=== PATIENT | male | born 1980 | race Caucasian/White ===

== ENCOUNTER 2021-03-08 09:42 | Emergency (ER) | payer BC, SELFPAY ==
[2021-03-08 09:45] VITALS: BP 141/88; PULSE 83; RESP 14; TEMP 37.4; O2SAT 98; BMI 27.9
--- NOTE | 2021-03-08 09:53 | ED_ITS ---
HPI - General Adult General Chief complaint: Extremity Injury, Upper Stated complaint: Rt shoulder fracture Time Seen by Provider: 03/08/21 09:49 Source: patient Mode of arrival: Ambulatory Limitations: no limitations History of Present Illness HPI narrative: Patient is a 40-year-old male who approximately 12 days ago sustained a fall while in [place]. He states that he fell down 2-3 stairs. He was seen at a facility there and had x-rays and was diagnosed with a humerus fracture. He states that since that time he has had continued pain. He states he was told by the emergency physician there that he was going to have surgery that evening however he states that the orthopedic doctor was not want to be able to see him until 7-8 days later. His mother lives in the local area. Apparently he was supposed to moved to the local area later this month and so just decided to travel here. He shows up to the emergency department seeking further evaluation. Related Data Previous Rx's Medication Instructions Recorded hydrocodone-acetaminophen 1 tab PO Q4-6H PRN #14 tab 03/08/21 Allergies Allergy/AdvReac Type Severity Reaction Status Date / Time No Known Drug Allergies Allergy Verified 03/08/21 09:55 Review of Systems Constitutional Constitutional: Reports system reviewed and no additional complaints, except as documented Musculoskeletal Musculoskeletal: Reports tingling Comments: Right shoulder pain and swelling Integumentary/Breasts Comments: Bruising around the right chest and right shoulder Neurologic Neurologic: Reports tingling Psychiatric Psychiatric: Reports system reviewed and no additional complaints, except as documented Hematologic/Lymphatic On Anticoagulants: No Allergic/Immunologic Allergic/Immunologic: Reports system reviewed and no additional complaints, except as documented Patient History Medical History Healthy adult Social History lives independently: Yes Smoking Status: Unknown if ever smoked Exam Initial Vital Signs Initial Vital Signs: Vital Signs Temperature 99.4 F 03/08/21 09:45 Pulse Rate 83 03/08/21 09:45 Respiratory Rate 14 03/08/21 09:45 Blood Pressure 141/88 H 03/08/21 09:45 Pulse Oximetry 98 03/08/21 09:45 Const General: cooperative Limitations: mental status not altered HENAR Head: normal to inspection and normocephalic Resp Effort & Inspection: normal respiratory effort Cardio Rate: regular rate Pulses: radial pulses present on the right Skin Other: Bruising to the right pectoralis region and also the right humerus and right forearm Neuro Sensory Exam: no sensory deficits noted Extrem Other: Discomfort palpation of the right humerus and right forearm. Psych Appearance: grossly normal and well kempt Procedures Orthopedic Splinting/Casting Injury #1: Side: right Upper Extremity Injury Location: shoulder Upper Extremity Immobilizer: sling/shoulder immobilizer Post splinting neuro exam: no change Post splinting vascular exam: no change Placed by: Nursing Course Orders Ordered: ED Orders 03/08/21 09:52 XR forearm RT 2V Stat XR humerus RT 2V Stat Vital Signs Vital signs: Vital Signs - 8 hr 03/08/21 09:45 Temperature 99.4 F Pulse Rate 83 Respiratory Rate 14 Blood Pressure 141/88 H Pulse Oximetry 98 Medical Decision Making Lab Data Lab results reviewed: Yes I reviewed the patient's lab results. Imaging Data Extremity x-ray #1: Radiologist's Impression: [address] [id number] ReportSigned Patient: Shekhar Velázquez PMR#: [id number]: 1980Acct:[id number]/Sex: 40 / MDate of Service: 03/08/21Loc: EDAccession Number: [id number] Procedure: XR forearm RT 2V Ordering Provider: Roman Garibay D.O. PROCEDURE: XR FOREARM RT 2V INDICATIONS: fall with pain TECHNIQUE: 2 views of the forearm were acquired. COMPARISON: None. FINDINGS: Bones: No fractures or dislocations. No suspicious bony lesions. Soft tissues: No suspicious soft tissue calcifications or masses. IMPRESSION: No evidence acute bony abnormality of the right forearm Dictated by: Hawk Najera M.D. on 03/08/2021 at 10:30 Approved by: Hawk Najera M.D. on 03/08/2021 at 10:31 Extremity x-ray #2: Radiologist's Impression: [address] [id number] ReportSigned Patient: Shekhar Velázquez PMR#: [id number]: 1980Acct:[id number]/Sex: 40 / MDate of Service: 03/08/21Loc: EDAccession Number: [id number] Procedure: XR humerus RT 2V Ordering Provider: Roman Garibay D.O. PROCEDURE: XR HUMERUS RT 2V INDICATIONS: known fracture after fall no X-rays here TECHNIQUE: 2 views of the humerus were acquired. COMPARISON: None. FINDINGS: Bones: Markedly comminuted, mildly displaced and angulated fracture of the humeral head and neck. No distal humeral fractures. No suspicious bony lesions. Soft tissues: No suspicious soft tissue calcifications. IMPRESSION: Markedly comminuted, mildly displaced and angulated fracture of the humeral head and neck. Dictated by: Hawk Najera M.D. on 03/08/2021 at 10:30 Approved by: Hawk Najera M.D. on 03/08/2021 at 10:30 [facility] Narrative Medical decision making narrative: Patient does have a proximal humerus fracture. He is neurovascularly intact. Does have quite a bit of swelling in his right upper arm and right lower arm. Low suspicion for compartment syndrome as as compartments are soft. I did discuss the case with Dr. Matos with orthopedics who took down the patient's information and will have the office contact him for follow-up later this week. He was placed in a splint for his comfort. He was also given the contact information for the orthopedic providers. Is given return precautions. He expressed understanding and agreement. Discharge Plan Departure Patient Disposition: Home Clinical Impression: Fracture of proximal end of humerus Instructions: How to Use a Sling, DI for Shoulder Fracture Activity Restrictions/Additional Instructions: I did discuss her case with Dr. Matos with orthopedics who stated that her office will contact you for follow-up in the office later this week. If you have not heard from them by tomorrow contact them at the number provided below. Use the sling like we discussed. Return to the emergency department for any new symptoms. If you are also planning to stay in the area I recommend you contact the health patient resource coordinator at [phone]. This individual can help you with establishing a primary provider. This is important because no further pain medication can be administered from the emergency department. This will either have to come from a primary doctor or the orthopedic provider Prescriptions: New hydrocodone-acetaminophen 5-325 mg tablet 1 tab PO Q4-6H PRN (Reason: pain) Qty: 14 RF: 0 Referrals: Hailey Matos MD [Physician] -
[2021-03-08 11:20] VITALS: BP 131/95; PULSE 80; RESP 19; O2SAT 99
== END 2021-03-08 11:21 | disposition home or self-care (01) ==
PROVIDERS: Emergency Provider Emergency Medicine
DX: S42.201A Unspecified fracture of upper end of right humerus, initial encounter for closed fracture (principal); W10.9XXA Fall (on) (from) unspecified stairs and steps, initial encounter
CPT/HCPCS: 73060; 73090; 99283

== ENCOUNTER 2021-03-11 08:41 | Day surgery (SDC) | payer BC, OTHER, SELFPAY ==
[2021-03-11] VITALS (14 sets, daily range): BP systolic 126–154; BP diastolic 70–93; PULSE 72–104; RESP 14–18; TEMP 35.9–37.5; O2SAT 95–100; BMI 27.2
[2021-03-11] MEDS: LACTATED RINGERS 1,000 ML 42 ML IV ×3 (09:22→15:22)
[2021-03-11 09:25] LABS: COVID19 -Nasal RAPID Negative (Negative)
[2021-03-11] MEDS: ACETAMINOPHEN 325 MG TABLET 975 MG PO ×2 (09:31→20:47)
[2021-03-11] MEDS: GABAPENTIN 300 MG CAPSULE PO (09:31)
--- NOTE | 2021-03-11 10:01 | PM.PREOP ---
Pre-operative Note COVID-19 COVID-19 status: Negative Result date/Date tested (Pos, Neg/Pending): 03/11/21 Interval Note History & Physical reviewed/Exam performed by Physician: Yes Changes to H&P: No
[2021-03-11] MEDS: CEFAZOLIN 1 GM VIAL 2 GM IV ×3 (11:00→22:50)
--- NOTE | 2021-03-11 11:25 | SUR.OPER ---
Supine on padded OR bed, head on pillow, left arm lying on oR padded table tucked at side, Right arm on padded Plexiglass arm board and in control of the surgeon, legs uncrossed, safety belt at thigh, tape over blanket over lower legs .
[2021-03-11] MEDS: BUPIVACAINE 0.25% W/ EPI (PF) 10 ML VIAL 20 ML INJ (11:37)
--- NOTE | 2021-03-11 15:55 | DI.RAD.S_ITS ---
PROCEDURE: XR SHOULDER RT MIN 2V INDICATIONS: RT SHOULDER ORIF TECHNIQUE: 3 operative views of the shoulder were acquired. COMPARISON: [facility], CR, XR HUMERUS RT 2V, 03/08/2021, 10:00. FINDINGS: Bones: 3 operative images demonstrate ORIF of a markedly comminuted right humeral neck/head fracture with a side plate and multiple screws. There is no radiographic evidence of complications. Soft tissues: No suspicious soft tissue calcifications. IMPRESSION: Operative imaging utilized during ORIF of a humeral neck/head fracture Dictated by: Hawk Najera M.D. on 03/11/2021 at 16:31 Approved by: Hawk Najera M.D. on 03/11/2021 at 16:33
[2021-03-11] MEDS: fentaNYL 100 MCG/2 ML INJ IV ×4 (16:08→16:58)
[2021-03-11] MEDS: HYDROMORPHONE 2 MG INJ IV (16:16)
[2021-03-11] MEDS: LACTATED RINGERS 1,000 ML 100 ML IV (18:57)
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
--- NOTE | 2021-03-11 20:34 | P.PN_ITS ---
Subjective Subjective Date Patient Seen: 03/11/21 Time Patient Seen: 19:35 Interval history: Postop day 0 right proximal humerus ORIF. Doing well pain controlled, sitting up in bed eating dinner. Expresses that he is very thankful for his care and the efforts we have gone to treat him here. No complaints today. Endorses a endorses some soreness in the arm but does not want any pain medication. Does ask for something for sleep. Exam Vital Signs (past 8 hours): - 03/11/21 15:42 03/11/21 15:45 03/11/21 15:47 Temperature Pulse Rate 100 H 100 H 101 H Respiratory Rate 16 16 16 Blood Pressure 126/70 132/78 136/75 Pulse Oximetry 98 95 95 03/11/21 16:38 03/11/21 16:45 03/11/21 17:00 Temperature 98.0 F 98.0 F Pulse Rate 96 H 98 H 97 H Respiratory Rate 14 16 16 Blood Pressure 136/85 136/83 129/75 Pulse Oximetry 99 98 98 03/11/21 17:15 03/11/21 17:47 03/11/21 18:15 Temperature 96.6 F L 96.9 F L 97.8 F Pulse Rate 94 H 94 H 97 H Respiratory Rate 16 16 16 Blood Pressure 144/89 H 154/83 H 133/90 Pulse Oximetry 97 97 96 03/11/21 19:21 03/11/21 19:44 03/11/21 20:17 Temperature 98.2 F 98.8 F Pulse Rate 99 H 104 H Respiratory Rate 16 18 Blood Pressure 141/84 H 141/93 H Pulse Oximetry 98 99 97 Oxygen Delivery Method Room Air Narrative Exam Narrative: General exam is alert oriented male no acute distress sitting up eating dinner. No complaints. HEENT exam normocephalic atraumatic Breathing is normal on room air saturation is 98% on room air Heart regular rhythm Musculoskeletal examination: Right upper extremity. Mild swelling as expected postoperatively compartments are soft. Aquacel dressing in place. No erythema or crepitus. Endorses sensation intact in axillary median radial ulnar nerve distributions. Demonstrates active finger flexion extension demonstrates active wrist flexion and extension. No drainage on the dressing Objective Labs Labs: Laboratory Results - last 24 hr 03/11/21 08:55 SARS-CoV-2 (PCR) Negative [facility] Medical History Healthy adult Social History household members: family lives independently: Yes Smoking Status: Never smoker alcohol intake: current Assessment & Plan Post-op Postoperative Procedures: Procedures Operation Date: 03/11/21 10:30 Actual Procedures Side Surgeon p ORIF Humerus Fracture Right Hailey Matos MD right proximal humerus postop day 1 status post ORIF. Use sling full-time 2 weeks. May start pendulum exercises after 3 days to help prevent stiffness. Discharge home tomorrow morning oxycodone for pain control scripts on chart. Small prescription of Valium the states this worked well for spasms and anxiety for him in the past and he has some recently. Discussed only use this very sparingly. Patient agrees. Prescription on chart. Prescription for Zofran for nausea also on chart. Patient has stool softener at home. Can also take ibuprofen and Tylenol if needed for pain. Follow-up my clinic 10-14 days for staple removal. Spoke with the patient directly regarding the OR medication event, with the infiltration of (10cc) hydrogen peroxide into the inferior aspect of the incision. Discussed with the patient that the incision was re-opened and drained and irrigated out. Patient expressed understanding. Quality VTE Deep Vein Thrombosis/Pulmonary Embolism Present on Admission: No
[2021-03-11] MEDS: DOCUSATE 100 MG CAPSULE PO (20:47)
[2021-03-11] MEDS: ZOLPIDEM 5 MG TABLET PO (20:47)
[2021-03-11] MEDS: OXYCODONE IR 10 MG TABLET PO (20:50)
[2021-03-11] MEDS: diazePAM 2 MG TABLET PO (22:50)
[2021-03-12] MEDS: OXYCODONE IR 10 MG TABLET PO ×3 (00:11→06:23)
[2021-03-12 03:18] VITALS: BP 134/79; PULSE 86; RESP 16; TEMP 37.4; O2SAT 96
[2021-03-12] MEDS: LACTATED RINGERS 1,000 ML 100 ML IV (03:53)
[2021-03-12] MEDS: CEFAZOLIN 1 GM VIAL 2 GM IV (06:24)
[2021-03-12] MEDS: diazePAM 2 MG TABLET PO (06:31)
[2021-03-12] MEDS: HYDROMORPHONE 0.5 MG INJ 0.2 MG IV (07:01)
--- NOTE | 2021-03-12 07:35 | PC.NURSE ---
Pt. reported pain level is @ 5/10 after Dilaudid 0.2 mg. admin. IVP. States it helped & I'm feeling a lot better than the pills I took earlier. Instructed pt. to let his MD know what medicine relieved his pain. Will monitor & continue POC.
[2021-03-12 08:19] VITALS: BP 145/85; PULSE 86; RESP 16; TEMP 36.9; O2SAT 95
--- NOTE | 2021-03-12 08:42 | PM.DS.1 ---
History of Present Illness History of Present Illness Date Patient Seen: 03/12/21 Time Patient Seen: 08:42 Chief complaint: ORIF RIGHT PROXIMAL HUMERUS FX *OPB* Narrative: Referred to previous HPI. Discharge Providers Provider Discharge Date: 03/12/21 Consults: 03/11/21 17:17 Consult to Respiratory Therapy Evaluate & Treat Comment: Physician Instructions: Evaluate and treat Discharge provider: Moy Ruiz PA-C Summary Hospital Course Discharge Diagnosis: Right proximal humerus fracture ORIF right proximal humerus fracture Hospital Course: Patient was admitted to the hospital following the above-listed procedure for the above-listed diagnosis. Following the procedure the patient has been convalescing appropriately in his pain has been managed with his current pain management regimen. Throughout his course in the hospital the patient has denied fever, chills, nausea, chest pain, shortness of breath, or urinary retention. Patient was placed in a sling following the procedure and has remained in the sling since then. Was cell dressing was placed over the incision site following the procedure. Patient is reporting good sensation throughout the bilateral upper extremities following the procedure. Status at Discharge Cognitive/behavioral status at discharge: oriented Functional status at discharge: independent ambulation Overall status at discharge: patient is progressing back to baseline Exam Vital Signs (past 8 hours): - 03/12/21 03:18 Temperature 99.3 F Pulse Rate 86 Respiratory Rate 16 Blood Pressure 134/79 Pulse Oximetry 96 Oxygen Delivery Method Room Air Oxygen Flow Rate 0 Narrative Exam Narrative: 40-year-old male postop day 1 status post right ORIF proximal humerus fracture. Patient is resting comfortably in bed, is in no acute distress, is alert and oriented x3. Skin is warm and dry, and the skin surrounding the incision site is free of erythema, warmth, induration, or discharge. Aquacel dressing over the incision site is clean, dry, and intact. Good sensation appreciated throughout the bilateral upper extremities to light touch. Capillary refill less than 2 seconds. Const General: cooperative, healthy appearing and comfortable Resp Effort & Inspection: normal respiratory effort and able to speak in complete sentences Skin General: no rashes or lesions noted Objective Labs Labs: Laboratory Results - last 24 hr 03/11/21 08:55 SARS-CoV-2 (PCR) Negative [facility] Medical History Healthy adult Social History household members: family lives independently: Yes Smoking Status: Never smoker alcohol intake: current Discharge Assessment & Plan Assessment and Plan Assessment: Patient is doing well. Plan of Treatment: Patient is to remain in sling for at least 2 weeks and can begin pendulum exercises out of sling in 3 days. Current pain management regimen is to be continued as it is adequately controlled the patient's pain level at this time. Aquacel dressing over the incision site is to remain clean, dry, and intact. Contact the clinic if the dressing becomes damaged or soiled. First postoperative visit in clinic is scheduled for 2 weeks following discharge from the hospital. Patient is to contact the clinic with any concerns or questions. Any signs of increased redness, swelling, warmth, pain, or discharge from around the incision site should be reported to the clinic. Discharge Plan Discharge Plan Patient Disposition: Home Discharge orders & Medications Discharge Orders: Discharge (Order); Ordered 03/12/21 Ordered By: Moy Ruiz Prescriptions: New oxycodone 5 mg tablet 5 - 10 mg PO Q4H PRN (Reason: pain) Qty: 42 RF: 0 ondansetron HCl 4 mg tablet 4 mg PO Q8H PRN (Reason: nausea and vomiting) Qty: 5 RF: 1 diazepam 2 mg Tablet 2 mg PO Q8HR Qty: 10 RF: 0 acetaminophen 325 mg Tablet 975 mg PO TID Qty: 60 RF: 0 aspirin 325 mg Tablet,Delayed Release (Dr/Ec) 325 mg PO DAILY Qty: 14 RF: 0 docusate sodium [DOK] 100 mg Capsule 100 mg PO BID Qty: 30 RF: 1 naloxone 4 mg/actuation spray,non-aerosol 4 mg intranasal Q2M PRN (Reason: opioid overdose) Qty: 2 RF: 0 ketorolac 10 mg tablet 10 mg PO Q6H 5 Days Qty: 20 RF: 0 hydromorphone 2 mg tablet 2 mg PO Q12HR Qty: 10 RF: 0 Discontinued hydrocodone-acetaminophen 5-325 mg tablet 1 tab PO Q4-6H PRN (Reason: pain) Qty: 14 RF: 0 diazepam 5 mg tablet 5 mg PO DAILY RF: 0 Follow up/Referrals: Hailey Matos MD [Physician] - (2 wks or as already scheduled with clinic) Diet/Activity/Treatments Diet: Diet as Tolerated Activity: NWB RUE, sling may start codman/pendulum exercises in 3 days (gentle swing or circles with arm hanging at side) otherwise in sling xercises for Shoulder Flexibility: Pendulum Exercise Pendulum/codman exercises: Improving your flexibility can reduce pain. Stretching exercises also can help increase your range of pain-free motion. Breathe normally when you exercise. And try to use smooth, fluid movements. Follow any special instructions you are given. If you feel pain, stop the exercise. If the pain continues after stopping, call your healthcare provider. Here are the steps for the pendulum exercise. Ask your physical therapist to demonstrate the exercise, if needed. ? Lean over with your good arm supported on a table or chair. You can sit or stand to do this exercise. Ask your physical therapist which position is best for you. ? Relax the arm on the painful side, letting it hang straight down. ? Slowly begin to swing the relaxed arm. Move it in a small [place], gradually making it bigger if you can. Then reverse the direction. Next, move it backward and forward. Finally, move it side to side. . Cold/Heat Therapy: ice okay Other treatments: At-Home Instructions - Dr. Matos Surgery: ORIF proximal humerus Cast/Splint/Dressing Care Instructions 1) Keepdressing clean and dry. 2) May bathe - but cast/dressing must remain dry. 3 Observe for increasing pain in the extremity with the cast, finger/toe-tips turning blue/purple, or numbness and tingling in your toes/fingers. Should any of these symptoms arise, you need to be seen immediately for evaluation of swelling and increasing compartment pressures within your affected extremity. 4) You may ice your extremity, being careful to prevent melting ice from saturating into the splint/cast. 5) swelling in to the forearm/hand and wrist is common and mostly due to gravity and the dependent position of the hand in a sling. Activity No lifting with the operative arm. No driving while on narcotic pain medication. Do not get your dressing wet! You must remain non-weight bearing on your operative extremity. Use the sling for first 2 weeks at all times except pendulum. Most find more comfortable to sleep semi upright in a recliner type chair. No driving until you are otherwise instructed by your physician. This will be addressed at your first follow-up appointment. Discharge Pain Medications You will be given a prescription for pain medication. You should start taking this the same day after your surgery. Wean off as tolerated. Do not wait to take the pain medication until the pain is severe, as it will be difficult to catch up once this occurs. The pain medication usually reaches its full effect ~1 hour after ingesting. If you have been sent home on [place], this medication should be taken until you are off all narcotic (i.e. Vicodin, Percocet, Oxycodone, etc) pain medications, to prevent constipation. You may also obtain this or another stool softener over the counter to prevent or alleviate constipation. Percocet or Vicodin have Tylenol in their ingredient lists. You must be careful not to exceed 3,000mg (3 grams) of Tylenol, from all sources, within a single 24-hr period. This means that you may not take more than 10 pills within a 24-hr period. Do NOT take Regular or Extra Strength Tylenol when taking your Percocet or Vicodin medications. -IF you have been given a Toradol/ketorolac prescription, this is a very strong anti-inflammatory. Do not take bbfq-qcp-xhmetan anti-inflammatories (ibuprofen, Aleve, Advil, Motrin) while taking the Toradol/ketorolac. Once you are finished with this prescription, then you can resume yviq-tfo-tpuqksi anti-inflammatories. You can still take your narcotic pain medication and Tylenol while taking the Toradol/ketorolac. -Some common side effects of the narcotic pain medications (Percocet, Oxycodone, Vicodin, etc.) include nausea and itching. Benadryl is a great over the counter medication that helps calm your stomach, decreases your anxiety levels, and minimizes the itching. You can easily purchase this at your local pharmacy as an [id number]-[id number] medication. Please abide by the instructions as printed on the bottle. If your nausea persists, make sure to take small amounts of crackers or other legal administrative assistant foods. Blood clot/DVT prophylaxis: Blood clots from upper extremity surgery are more rare than from lower extremity surgery but can still happen. I recommend taking a regular aspirin (325mg) once a day to reduce this risk. Alternatively you can take 4 baby aspirin (81mg) which equals that same amount (324mg). If you choose baby aspirin, these can be taken all at once or 2 in AM and 2 in PM. Take aspirin for 2 weeks of until you are up and moving around more. Follow-Up/Emergency Contacts Please call for an appointment in either [place] or [place], if one has not been scheduled. Follow up 2 weeks after surgery. [phone] Contact the office if you have any of the following: ? Painful swelling or numbness ? Unrelenting pain ? Fever (over 101?- it is normal to have a low grade fever for the first day or two following surgery) or chills ? Redness around the incisions ? Color changes ? Continuous bleeding or drainage from the incision (a small amount is expected) ? Excessive nausea or vomiting ? Difficulty breathing If you have an emergency that requires immediate attention, proceed to the nearest emergency room. Pain Medications: It is the policy of [facility] that narcotic medications will only be refilled during office hours. Additionally, due to the alarming rate of narcotic pain medication abuse/dependence, it has become necessary for physician practices to closely manage patient use of prescription narcotic pain relievers, such as Vicodin ([place]), Percocet, and Oxycodone products. Narcotic pain management in the postoperative period may not exceed 6 weeks. If narcotic pain management is required beyond 90 days, then a referral to a Chronic Pain Specialist will be made. If a request for a medication prescription has been made, the physician must review your chart prior to authorizing the request. Please be patient with office staff. Dr. Hailey Matos [address] [email or web address] Skin/Wound/Dressing Care Report to your healthcare provider any signs of infection, such as:: chills, fever, night sweats, increased pain, unusual drainage and unusual redness Dressing: keep c/d/i Other wound treatment: Avoid placing topical ointments over the incision site. Avoid soaking the incision site. Visit Report/Discharge Packet Instructions: DI for Open Reduction Internal Fixation Surgery Stand Alone Forms: Surgery Discharge Discharge Data Attending Provider: Hailey Matos VTE Deep Vein Thrombosis/Pulmonary Embolism Present on Admission: No
--- NOTE | 2021-03-12 08:45 | P.PN_ITS ---
Subjective Subjective Date Patient Seen: 03/12/21 Time Patient Seen: 08:45 Interval history: Postop day 1 right proximal humerus open reduction internal fixation. Awake and alert breakfast that excised. Did state he had more pain overnight. Got oxycodone p.o. 1 dose of IV Dilaudid this morning which he thinks helped the most. Denies fevers or chills. Exam Vital Signs (past 8 hours): - 03/12/21 03:18 03/12/21 08:19 Temperature 99.3 F 98.4 F Pulse Rate 86 86 Respiratory Rate 16 16 Blood Pressure 134/79 145/85 H Pulse Oximetry 96 95 Oxygen Delivery Method Room Air Oxygen Flow Rate 0 Narrative Exam Narrative: General exam is alert oriented male no acute distress lying in bed. The ice pack over the shoulder. Aquacel dressing in place HEENT exam normocephalic atraumatic Respiratory unlabored on room air sats between 95 and 100% Heart regular rate and rhythm Musculoskeletal examination: Right shoulder with Aquacel dressing in place. No drainage no erythema. Compartments soft. Sensation grossly intact to axillary, radial, ulnar, median nerve distributions. Demonstrates active wrist extension and flexion finger extension and flexion. Moves bilateral lower extremities without difficulty SCDs on lower extremity Objective Labs Labs: Laboratory Results - last 24 hr 03/11/21 08:55 SARS-CoV-2 (PCR) Negative [facility] Medical History Healthy adult Social History household members: family lives independently: Yes Smoking Status: Never smoker alcohol intake: current Assessment & Plan Post-op Postoperative Procedures: Procedures Operation Date: 03/11/21 10:30 Actual Procedures Side Surgeon p ORIF Humerus Fracture Right Hailey Matos MD postop day 1 right proximal humerus fracture ORIF. Doing well. Pain as expected postoperatively. Continue oral medications. Will add Toradol. May also try a 2 mg oral Dilaudid for breakthrough pain at time of next opiate dose to see if this works better for him than the oxycodone. Feeling better now after his oral medications this morning. Has not been up out of bed yet will get physical therapy to get him up. Other than that no specific therapy at this time. does need to be able to walk to the bathroom and move around. He will stay in his sling on the right side and then may start Codman's/pendulum exercises in a few days which he has been instructed on. Nonweightbearing right upper extremity. The range of motion of the hand and wrist. Discharge this morning after he has been out of bed with therapy. He will have prescriptions for oxycodone for pain medication. Will get just a few tabs of oral hydromorphone for breakthrough pain. Ketorolac for 5 days. No other anti-inflammatories (ibuprofen, Aleve) while on the Toradol but then once this prescription is finished may take regular anti- inflammatories. If he chooses not to fill the Toradol then recommend ibuprofen 800 mg 3 times a day Will take aspirin 325 mg daily for DVT prophylaxis Prescription for Zofran for nausea as needed Docusate sodium for stool softener Acetaminophen up to 1000 mg t.i.d. Quality VTE Deep Vein Thrombosis/Pulmonary Embolism Present on Admission: No
[2021-03-12] MEDS: KETOROLAC 30 MG/ML VIAL IV (08:59)
[2021-03-12] MEDS: ACETAMINOPHEN 325 MG TABLET 975 MG PO (09:01)
[2021-03-12] MEDS: ASPIRIN EC 325 MG TABLET PO (09:01)
[2021-03-12] MEDS: DOCUSATE 100 MG CAPSULE PO (09:02)
--- NOTE | 2021-03-12 09:15 | PT.IIE ---
Current Diagnoses Other displaced fracture of upper end of right humerus, initial encounter for closed fracture (03/11/21) Surgery Performed Operation Date: 03/11/21 10:30 Actual Procedures p ORIF Humerus Fracture(Right) - Hailey Matos MD Medical History (Last Reviewed 03/12/21 @ 08:44 by Moy Ruiz PA-C) Healthy adult Physical Therapy Inpatient Evaluation/Re-Eval M1 PT/OT-IP Prior Functional Status Start: 03/12/21 10:14 Freq: NEEDED Status: Active Protocol: Document 03/12/21 09:15 AB (Rec: 03/12/21 10:29 AB [id number]) Medical Review Prior Functional Status Medical History Reviewed Yes Communication able to make needs known Mobility and Gait pt stated that he is independent with all mobilities and ambulation without AD Social History Household Members family Living Arrangements House Number of Floors (Floors) One Floor Number of Stairs To Enter/Railing? 3 steps descending with L rail to enter the house Home Environment Standard Height Toilet,Walk in Shower,Tub/Shower Home Equipment Hand Held Shower Additional Social History Comment pt lives alone but will stay at her mother's house and mom will be able to assist pt; home set up infor is regarding pt's mother's house M2 PT-IP Current Condition Start: 03/12/21 10:14 Freq: NEEDED Status: Active Protocol: Document 03/12/21 09:15 AB (Rec: 03/12/21 10:29 AB [id number]) Physical Therapy Current Condition Current Condition Evaluation Date 03/12/21 Treatment Diagnosis R prox. humeral fx s/p ORIF; difficulty in walking Onset Date 03/11/21 Precautions Shoulder Precautions Sling Other Precautions Per Dr. Mcmanus: hand/wrist ROM; avoid elbow ROM but may move PROM for positioning/ dressing needs; pendulum after 3 days Weight Bearing Status Weight Bearing Status Non-Weight Bearing Allowed Weight Bearing Amount (enter % RUE NWB or #) (%) M3 PT-IP Subjective Start: 03/12/21 10:14 Freq: NEEDED Status: Active Protocol: Document 03/12/21 09:15 AB (Rec: 03/12/21 10:29 AB [id number]) Subjective Physical Therapy Visit Type Type Initial Evaluation Visit Start Time 09:15 Visit Stop Time 09:56 Total Visit Minutes 41 Number of GYNECOLOGIST Visits 0 Physical Therapy Visit Comments Patient Comments pt is agreeable to do PT; pt's mom in room Therapy Pain Assessment Pain When Pain Assessed At Rest Pain Present Pain Present Pain Reported Location Right Shoulder Intensity 8 Scale Used Numeric (0 - 10) Pain Management Techniques Distraction,Modification of Treatment,Re-positioning, Timing of Activity with Medications M4 PT-IP Mobility and Gait Start: 03/12/21 10:14 Freq: NEEDED Status: Active Protocol: Document 03/12/21 09:15 AB (Rec: 03/12/21 10:29 AB [id number]) PT-Bed Mobility Assessment Supine to Sit Supine to Sit Standby Assistance PT-Transfer Assessment Sit to and From Stand Sit to and from Stand Standby Assistance Equipment Transfer Assistive Device None Orthotic/Prosthetic Devices or Brace: Yes Transfers Transfer Destination Chair Transfer Technique ambulated without AD Transfer Ability Level of Assist Standby Assistance Comments Mobility Comments educated pt regarding shoulder precautions. educated pt and pt's mother regarding sling management, positioning for UB dressing, hand/wrist exercises and pendulum after 3 days. pt completed supine to sit SBA. instructed pt's mother to manage sling and completed. pt completed sit to stand from EOB SBA and ambulated in room ~ 30 ft and agreed to ambulate out in the hallway and completed ~ 300 ft without AD. completed up/ down steps without rails SBA. also educated on how to use R rail for safety and completed again with R rail ascending SBA. pt ambulated back to his room SBA without AD. agreed to stay up on chair. positioned on chair. educated on how to position RUE when in bed and when seated. call light and table placed within reach. Gait Assessment Gait Gait Assistance Required: Standby Assistance Distance (Feet) 300 Able to Maintain Weight Bearing Status Yes During Gait Assistive Devices Assistive Device None Orthotic/Prosthetic Devices or Brace: Yes Gait Deviations General Gait Pattern Antalgic Factors Limiting Gait Function Factors Limiting Gait Function Limited Range of Motion,Pain Stair Climbing Assessment Evaluation Level of Assist On Stairs Standby Assistance Devices Stair Climbing Assistive Devices None,Right Railing Technique/Endurance Stair Climbing Direction Ascend and Descend Stair Climbing Technique Step Over Step Number of Steps Climbed 3 Query Text: Stair Climbing Set # Repetitions (reps) 2 Comments Stair Climbing Comments completed initially without AD SBA step over step. pt's mom became worried. reassured pt 's mom that pt is steady. instructed pt regarding using R rail for steps and doing step to pattern for safety if needed and understood. PT-Balance Assessment Sitting Balance and Reactions Static Sitting Balance Ability Normal Dynamic Sitting Balance Ability Normal Standing Balance and Reactions Static Standing Balance Ability Good Dynamic Standing Balance Ability Good Device Used without AD M5 PT-IP Objective Assessments Start: 03/12/21 10:14 Freq: NEEDED Status: Active Protocol: Document 03/12/21 09:15 AB (Rec: 03/12/21 10:29 [facility] Orientation Orientation/Cognition Level of Alertness Alert Orientation Name,Place,Situation Language Function Ability No Deficits Noted Safety Awareness Understands Safety Issues Memory Description No Deficits Noted Gross Range of Motion Lower Extremity ROM Assessment Within Functional Limits Strength Lower Extremity Strength Assessment Within Functional Limits Sensation Assessment Sensation Gross Sensation WNL Muscle Tone Muscle Tone WNL Yes M6 PT-IP Treatment Start: 03/12/21 10:14 Freq: NEEDED Status: Active Protocol: Document 03/12/21 09:15 AB (Rec: 03/12/21 10:29 [facility] Physical Therapy Treatment Education Education Provided Precautions,Weight Bearing Status,Safety M7 PT-IP Assessment and Plan Start: 03/12/21 10:14 Freq: NEEDED Status: Active Protocol: Document 03/12/21 09:15 AB (Rec: 03/12/21 10:29 AB [facility] PT Summary Assessment and Plan Potential Rehabilitation Potential Good Status of Condition at Evaluation Stable Summary Impairments Pain,ROM,Strength,Balance, Coordination,Bed Mobility, Transfers,Gait,Activity Tolerance Assessment Summary pt requiring SBA with mobility and plans to go home to his mom's house and his mom will be able to assist pt. pt may go home when medically stable. pt and pt's mom instructed and educated on R shoulder precautions, sling management, HEP. Goals Bed Mobility Goal Independent Transfer Goal Independent Gait Goal Independent Gait Distance 350 Other Goals up/down 3 steps without AD mod I Days to Meet Goals 3 Frequency of Treatment Frequency Of Treatment Twice a Day Treatment Plan Physical Therapy Treatment Plan Bed Mobility Training,Transfer Training,Gait Training, Therapeutic Exercise,Balance Retraining,Post Op Education, Discharge Planning,Hot or Cold Pack,Neuromuscular Re-ed, Coordination Retraining,Manual Therapy Precautions Shoulder Precautions Sling Other Precautions Per Dr. Mcmanus: hand/wrist ROM; avoid elbow ROM but may move PROM for positioning/ dressing needs; pendulum after 3 days RUE NWB Recommendations To Nursing Amount of Assist Needed Standby Assistance Discharge Recommendations PT Discharge Recommendations Home with Assistance, Outpatient PT Transportation Needs at Discharge Private Vehicle
[2021-03-12 09:18] VITALS: PULSE 86; RESP 18; O2SAT 97
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
[2021-03-12] MEDS: HYDROMORPHONE 2 MG TABLET PO (10:22)
--- NOTE | 2021-03-12 10:35 | PC.NURSE ---
Pt rouses easily, able to express needs well. Pt anticipating leaving today. States Mom will be here at 09:30 -10:00 mal. they want to get the ferry to [facility] at 11:00. Dr. Matos in to see patient and discuss plan. Orders written. IV discontinued intact and Pt and Mother given discharge instructions and prescriptions. Pt's dressing clean dry and intact, sling in place and importance of sling in=mparted to Pt and Mom. Pt states understanding of all instructions. Pt escorted to car via W/C by RN. Pt settled into car.
== END 2021-03-12 10:21 | disposition home or self-care (01) ==
LOC: OR 10:14 → AC 13:11
PROVIDERS: Referring Provider Orthopaedic Surgery Foot and Ankle Surgery; Visit Provider Orthopaedic Surgery Foot and Ankle Surgery
PROC: (CPT 23615; principal; 2021-03-11 10:30)
DX: S42.291A Other displaced fracture of upper end of right humerus, initial encounter for closed fracture (principal); Z20.822 Contact with and (suspected) exposure to COVID-19; Y04.2XXA Assault by strike against or bumped into by another person, initial encounter
CPT/HCPCS: 23615; 73030; 76000; 87635; 97161; 97530; J0690; J1100; J1170; J1885; J2405; J2704; J3010